=== PATIENT | female | born 1955 | race Caucasian/White ===

== ENCOUNTER 2017-10-26 18:24 | Emergency (ER) | payer MEDICAID, SELFPAY ==
[2017-10-26 18:27] VITALS: BP 141/112; PULSE 76; RESP 18; TEMP 36.7; O2SAT 99; BMI 29.2
[2017-10-26 18:32] VITALS: O2SAT 100
--- NOTE | 2017-10-26 18:50 | RAD_ITS ---
XR Foot Min 3 Views INDICATION: fell today, left great toe pain COMPARISON: None TECHNIQUE: 3 views of the left foot FINDINGS: Multiple radiopaque densities are seen overlying the forefoot predominantly the first and second toe. This could be from overlying clothing, bandaging, or extensive dirt, prescribed with physical exam. The evaluation of the osseous structures is therefore limited. There is a nondisplaced fracture through the base of the distal phalanx of the great toe. There is otherwise normal alignment. RAD/Foot min 3 Views IMPRESSION: Nondisplaced fracture through the base of the distal phalanx of the left great toe. Extensive artifacts. at 1955 Reported and signed by: Macie Dinh MD Electronically Signed: Macie Dinh MD at 19:54 EDT Tel , Service support ,
--- NOTE | 2017-10-26 18:50 | EKG12_ITS ---
Test Reason : FALL
--- NOTE | 2017-10-26 18:50 | RAD_ITS ---
XR Chest 1 View INDICATION: slipped and fell today, pain COMPARISON: None FINDINGS: Heart size and pulmonary vascularity are within normal limits. The lungs are clear without evidence of airspace consolidation or pleural effusion. The osseous structures are grossly unremarkable. RAD/Chest 1 View (Portable) IMPRESSION: No radiographic evidence of acute intrathoracic disease. at 1960 Reported and signed by: Macie Dinh MD Electronically Signed: Macie Dinh MD at 19:57 EDT Tel , Service support ,
--- NOTE | 2017-10-26 18:50 | RAD_ITS ---
XR Knee 3 Views INDICATION: left knee pain after a fall today COMPARISON: None TECHNIQUE: 3 views of the left knee FINDINGS: The osseous structures are intact and well aligned. Joint spaces are preserved. There is no evidence of significant joint effusion. RAD/Knee 3 Views IMPRESSION: Negative plain film examination of the left knee. at 1959 Reported and signed by: Macie Dinh MD Electronically Signed: Macie Dinh MD at 19:56 EDT Tel , Service support ,
--- NOTE | 2017-10-26 18:51 | RAD_ITS ---
XR Spine Lumbar 2 or 3 Views INDICATION: fell today, pain COMPARISON: None TECHNIQUE: Frontal and lateral views of the lumbar spine and cone-down lateral view of the lumbosacral junction FINDINGS: There are 5 lumbar-type [id number] vertebral bodies. There is normal lumbar lordosis. The disc space at L3-4 is effaced and marked endplate degenerative changes are noted. Severe vascular calcifications are noted. RAD/Lumbar Spine 2 or 3 Views IMPRESSION: Marked vascular calcifications. L3-4 degenerative disc disease. at 2000 Reported and signed by: Macie Dinh MD Electronically Signed: Macie Dinh MD at 19:58 EDT Tel , Service support ,
[2017-10-26 19:01] LABS: Absolute Lymphocyte Count 1.93 X10^3/ul (0.83-4.51); Absolute Neutrophil Count 5.7 X10^3/uL (2.0-7.7); Basophil# 0.02 X10^3/uL; Basophil% 0.2 % (0-1); Eosinophil# 0.05 X10^3/uL; Eosinophils% 0.6 % (0-5); Hematocrit 37.9 % (37-47); Hemoglobin 12.8 g/dl (12.0-15.0); Lymphocyte # 1.93 X10^3/ul (4.0); Lymphocyte % 23.4 % (19-41); Mean Corp Hgb Conc 33.8 g/gl (32-36); Mean Corpuscular Hgb 29.8 pg (27.0-32.0); Mean Corpuscular Volume 88.1 fL (81-99); Mean Platelet Vol. 9.9 fl (6.2-12.0); Monocyte# 0.55 X10^3/uL; Monocyte% 6.7 % (0-10); Neutrophil # 5.68 X10^3/uL (2.7-7.7); POSITIVE COUNT NO; POSITIVE DIFFERENTIAL NO; POSITIVE MORPHOLOGY NO; Platelet Count 160 K/mm3 (150-450); RBC Distribution Width CV 13.1 % (11.6-14.6); RBC Distribution Width SD 41.8 fl (35.1-43.9); White Blood Count 8.2 K/mm3 (4.4-11.0)
[2017-10-26 19:26] LABS: Anion Gap 8 (5-15); BUN 21 mg/dL (7-18); BUN/Creat Ratio 13.4 RATIO (10-20); Calcium,Total 8.6 mg/dL (8.5-10.1); Chloride 111 mmol/L (98-107); Creatinine, Serum 1.57 mg/dL (0.55-1.02); EST Glomerular Filtration Rate 35 mL/min (>60); Est Glom Filt Rate - Afr Amer 43 mL/min (>60); Estimated Creatinine Clearance 29.01 ml/min; Glucose 124 mg/dL (74-106); Potassium 4.2 mmol/L (3.5-5.1); Sodium Level 141 mmol/L (136-145)
[2017-10-26] MEDS: Naproxen 500 MG Tablet PO (19:29)
[2017-10-26 19:34] VITALS: BP 131/93; PULSE 74; RESP 17; O2SAT 100
--- NOTE | 2017-10-26 20:15 | ED.DCSUM_ITS ---
- ER Visit Summary Date of Service: 10/26/17 Chief Complaint: Fall, left leg injury, syncope History of Present Illness: The patient is a 62 F who was walking down steps when she slipped and fell onto her left hand side. She injured her buttocks, left knee and left foot. She then ambulated afterwards and she had a syncopal episode after that. She denied any chest pain or shortness of breath and and currently. Physical Examination: Vital signs are reviewed. HEENT exam unremarkable. Heart is regular rate and rhythm. Lungs clear to auscultation. Abdomen soft nontender. Back reveals lumbar tenderness. Extremity exam reveals left knee tenderness to palpation. She has left great toe tenderness as well. She has full range of motion with pain of these areas. Her GCS is 15. Her neurologic exam is normal Test Results: Her studies are unremarkable except for creatinine to 1.57. EKG is normal sinus rhythm with no ST changes. Chest x-ray, lumbar spine x-ray and knee x-ray revealed no acute findings. Left foot x-ray does reveal a nondisplaced great toe fracture Emergency Department Course and Treatment: The patient's syncope may have been due to the pain. She was able to ambulate after the fall. Her only injury is a left great toe fracture. She will be placed in a postop shoe. I will give her naproxen here and some [place] at home. She will follow-up with her PCP Treatment Plan: [] Disposition: Discharge Impression: Fall, left great toe fracture, syncope This note was generated with [employer] dictation software. It may contain incorrect words, spelling, and punctuation that were not noted in review of the chart prior to signing ED Disposition - Plan for ED Patient: Chief Complaint: Fall Referrals: Deepali Marino MD [Primary Care Provider] -
--- NOTE | 2017-10-26 20:15 | ED.DEP ---
ED Disposition - Plan for ED Patient: Disposition: Home or Assisted Living Chief Complaint: Fall Instructions: ED Mechanical Fall Prescriptions: Hydrocodone/Acetaminophen [Chandler 5-325 Tablet] 1 - 2 ea PO 4X/DAY PRN PRN 3 Days #12 tab PRN Reason: Pain Referrals: Deepali Marino MD [Primary Care Provider] -
[2017-10-26 20:43] VITALS: BP 133/78; PULSE 79; RESP 16; O2SAT 97
== END 2017-10-26 20:45 | disposition home or self-care (01) ==
PROVIDERS: Emergency Provider Emergency Medicine; Family Provider Internal Medicine; PCP Internal Medicine
DX: S92.405A Nondisplaced unspecified fracture of left great toe, initial encounter for closed fracture (principal); R55 Syncope and collapse; W01.0XXA Fall on same level from slipping, tripping and stumbling without subsequent striking against object, initial encounter; Y93.01 Activity, walking, marching and hiking; Y92.9 Unspecified place or not applicable; J45.909 Unspecified asthma, uncomplicated; I10 Essential (primary) hypertension; E03.9 Hypothyroidism, unspecified; Z79.899 Other long term (current) drug therapy
CPT/HCPCS: 36415; 71045; 72100; 73562; 73630; 80048; 84484; 85025; 93005; 99285; J7030; A4216

== ENCOUNTER → 2017-11-04 10:14 | Outpatient (CLI) | payer MEDICAID, SELFPAY ==
--- NOTE | 2017-11-04 10:00 | MRI_ITS ---
STUDY: MRI BRAIN WITH AND WITHOUT CONTRAST REASON FOR EXAM: Female, 62 years old. Pulsatile tinnitus. TECHNIQUE: Standardized multiplanar fat and water weighted pulse sequences were obtained. 8 ml of Gadavist contrast material was administered intravenously for the contrast portion of the examination. COMPARISON: None. FINDINGS: No restricted diffusion to suspect acute or subacute ischemic infarct. No focal signal abnormalities throughout the brain parenchyma. The kirk matter, white matter, ventricles and cisterns are normal. Normal size of the ventricles and extra-axial spaces for the patient's age. Normal white matter tracts of the supratentorial brain. Normal bilateral basal ganglia. Normal thalami. There is no extra-axial fluid accumulation. Normal flow voids within the major intracranial circulation suggesting patency by spin echo criteria. Normal venous enhancement. There is no enhancing intra-axial or extra-axial abnormality. Normal sella turcica, pituitary gland, infundibular stalk, optic chiasm and hypothalamus. Normal tectal plate and pineal gland. Normal midbrain, ru and medulla. Normal cerebellum. Normal basal cisterns. The thin axial cuts and coronal cuts through the internal auditory canals are normal. No abnormal contrast enhancement of either membranous labyrinth. Normal bilateral internal auditory canals. No demonstrated orbital abnormality, within the constraints of a routine brain study. Normal visualized paranasal sinuses. Normal calvarium and skull base. Normal visualized soft tissue structures. Normal visualized upper cervical spine. MRI/Brain W/WO Contrast IMPRESSION: Normal MRI of the brain and internal auditory canals with and without intravenous contrast. COMMENT: If dural AV fistula is a clinical consideration, cerebral arteriogram with bilateral internal and external carotid arteriograms will be helpful for further evaluation. Electronically Signed: Emile Gomez MD at 11:45 EDT , Service support ,
--- NOTE | 2017-11-04 10:00 | MRI_ITS ---
STUDY: MRA OF THE HEAD WITHOUT CONTRAST REASON FOR EXAM: Female, 62 years old. Left pulsatile tinnitus. TECHNIQUE: 3-D [id number] (TOF) imaging was performed with MIPs. The study was performed unenhanced. COMPARISON: None. FINDINGS: Normal bilateral petrous carotid arteries. Normal right cavernous carotid artery with a normal supraclinoid bifurcation. Normal left cavernous carotid artery with a normal supraclinoid bifurcation. Normal right A1 segment of the anterior cerebral artery. Normal left A1 segment of the anterior cerebral artery. Normal intact anterior communicating artery (ACOM). Normal bilateral A2 segments of the anterior cerebral arteries. Normal right M1 and M2 segments of the middle cerebral arteries, with a normal M1 bifurcation. Normal left M1 and M2 segments of the middle cerebral arteries, with a normal M1 bifurcation. Normal right posterior communicating artery (PCOM). Normal left posterior communicating artery (PCOM). Normal bilateral vertebral arteries. Normal basilar artery with a normal basilar bifurcation. The visualized bilateral superior cerebellar (SCA) arteries are normal. Normal bilateral P1, P2 and visualized P3 segments of the posterior cerebral arteries. There is no demonstrated aneurysm of the stebbins of [place]. There is no major vessel occlusion or hemodynamically significant stenosis. There is no demonstrated abnormality of the visualized brain. MRI/MRA Head ONLY without Contrast IMPRESSION: Normal MRA of the head Electronically Signed: Emile Gomez MD at 11:25 EDT , Service support ,
--- NOTE | 2017-11-04 10:14 | DT_ITS ---
This patient was seen during an EMR downtime November 03, 2017 - November 10, 2017. This patient may have a combination of paper and electronic documentation or all paper documentation. All documentation is viewable within the e-chart portion of [facility] for each patient visit.
== END ==
PROVIDERS: Family Provider Internal Medicine; PCP Internal Medicine; Visit Provider Otolaryngology
DX: H93.A2 Pulsatile tinnitus, left ear (principal)
CPT/HCPCS: 70544; 70553; A9585

== ENCOUNTER → 2017-11-21 09:42 | Outpatient (CLI) | payer MEDICAID, SELFPAY ==
--- NOTE | 2017-11-21 09:46 | CDU_ITS ---
Reason For Study: Pulsatile tinnitus Rt. Velocities/BP Lt. Velocities/BP Prox CCA 78.0/19.9 cm/sec. Prox CCA 89.37/20.5 cm/sec. Mid CCA 85.6/21.1 cm/sec. Mid CCA 83.3/22.9 cm/sec. Dist CCA 76.8/25.2 cm/sec. Dist CCA 83.8/21.1 cm/sec. Prox ICA 85.6/28.1 cm/sec. Prox ICA 71.5/22.9 cm/sec. Mid ICA 90.3/28.7 cm/sec. Mid ICA 74.6/22.6 cm/sec. Dist ICA 70.5/20.8 cm/sec. Dist ICA 69.0/20.5 cm/sec. Rt. ICA/CCA = 1.1. Lt. ICA/CCA = .90. Prox ECA 91.5/15.2 cm/sec. Prox ECA 89.1/16.4 cm/sec. Rt. Vert. 43.4/12.9 cm/sec. Lt. Vert. 49.7/15.5 cm/sec. Right Extracranial There is intimal thickening but no significant atherosclerotic plaque noted in the right common carotid artery. There is intimal thickening but no significant atherosclerotic plaque noted in the right internal carotid artery. There is heterogeneous, irregular atherosclerotic plaque noted in the right external carotid artery. Antegrade flow is noted in the right vertebral artery. Left Extracranial There is intimal thickening but no significant atherosclerotic plaque noted in the left common carotid artery. There is intimal thickening but no significant atherosclerotic plaque noted in the left internal carotid artery. There is intimal thickening but no significant atherosclerotic plaque noted in the left external carotid artery. Antegrade flow is noted in the left vertebral artery. There is heterogeneous, irregular atherosclerotic plaque noted in the left bulb. Procedure Carotid Duplex 13999. Exam performed in department. Interpretation Summary No significant atherosclerotic plaque or stenosis noted in the internal carotid arteries bilaterally. Flow within the vertebral arteries is antegrade bilaterally. A small amount of heterogeneous, irregular atherosclerotic plaque is noted in the left carotid bulb, which is not hemodynamically significant. Ordering Physician: Mihir Galloway Referring Physician: Mihir Galloway Performed By: Bing Fam RVT
== END ==
PROVIDERS: Family Provider Internal Medicine; PCP Internal Medicine; Visit Provider Otolaryngology
DX: H93.A9 Pulsatile tinnitus, unspecified ear (principal); E78.5 Hyperlipidemia, unspecified
CPT/HCPCS: 93880

== ENCOUNTER → 2017-12-12 13:05 | Outpatient (CLI) | payer MEDICAID, SELFPAY ==
--- NOTE | 2017-12-12 13:11 | CT_ITS ---
STUDY: CT TEMPORAL BONES WITHOUT CONTRAST - ATTN: I.A.C. S REASON FOR EXAM: Female, 62 years old. Pulsatile abnormality in the right ureter. RADIATION DOSAGE (If Supplied By Facility): CTDIvol = ( 82.28 ) mGy, DLP = ( 734.79 ) mGycm TECHNIQUE: The patient was scanned in a multi detector CT scanner. Transaxial imaging was performed without the administration of intravenous contrast material. Sagittal and coronal images were reconstructed. Individualized dose optimization techniques were used for this CT. COMPARISON: None. FINDINGS: RIGHT TEMPORAL BONE Normal right internal auditory canal. Normal visualized ossicles and tympanic cavity. Normal right cochlea and semicircular canals. Normal vestibular aqueduct. Normal right petrous carotid artery. The right jugular fossa is enlarged. It measures 1 cm in greatest dimension. Normal right mastoid air cells. Normal right petrous apex. LEFT TEMPORAL BONE Normal left internal auditory canal. Normal visualized ossicles and tympanic cavity. Normal left cochlea and semicircular canals. Normal vestibular aqueduct. Normal left petrous carotid artery. Normal right jugular fossa. Normal left mastoid air cells. Normal left petrous apex. CT/Orb Sella Post Fossa Ear w/o IMPRESSION: Enlargement of the right jugular fossa. Electronically Signed: Jean Paul Friedman MD at 15:30 EDT Tel [phone], Service support ,
== END ==
PROVIDERS: Family Provider Internal Medicine; PCP Internal Medicine; Visit Provider Otolaryngology
DX: H93.A9 Pulsatile tinnitus, unspecified ear (principal)
CPT/HCPCS: 70480

== ENCOUNTER 2024-06-14 12:28 | Emergency (ER) | payer MEDICARE, SELFPAY ==
[2024-06-14 12:29] VITALS: BP 122/79; PULSE 93; RESP 18; TEMP 36.4; O2SAT 96; BMI 26.2
[2024-06-14 13:32] VITALS: BP 130/64; PULSE 77; RESP 17; TEMP 36.8; O2SAT 97
--- NOTE | 2024-06-14 13:41 | EDS_ITS ---
HPI History of Present Illness Chief Complaint: General Illness Narrative Narrative: Chief complaint and HPI: Flulike symptoms. 69-year-old female with past medical history of hypothyroidism, HTN, biliary disease on ursodiol who presents for evaluation of flulike symptoms. Patient states for the past week she has had cough, congestion, nausea, body aches. She states over the weekend she developed nonbloody diarrhea. Diarrhea is improving. Patient states while on the toilet on Friday she got lightheaded after having diarrhea and had a syncopal episode on the toilet. She states she knew she was going to pass out as this has happened to her before. She states she hit her head. Denies any headache. Not on blood thinners. Patient states her biggest complaint is the left shoulder pain since the fall. Denies any numbness or tingling. Patient states she presented to urgent care for her symptoms today and they referred her to the emergency department. She is denying any abdominal pain or vomiting. Denies any dysuria, chest pain, shortness of breath. Review of systems: See HPI Medications: As listed on the chart Allergies: As listed on the chart PFSH: Per chart Vital signs: As listed on the chart. Reviewed. Physical exam: Gen: A&O x3, NAD Head: Normocephalic, atraumatic Eyes: No sclera icterus, conjunctiva clear, PERRL, EOMI ENT: Moist mucous membranes, + congestion Neck: Trachea midline, No JVD, Full ROM, No meningismus CV: RRR, no murmurs, no peripheral edema, left shoulder mildly tender to palpation but full range of motion no obvious dislocation or trauma Resp: Lungs CTA BL, no w/r/c, + dry cough GI: Abd soft, non-distended, non-tender, no r/r/g Musc: Full ROM, no deformity Skin: Warm, dry, no rash Neuro: Alert, oriented, grossly intact, sensation intact Psych: Cooperative, appropriate mood and affect [facility] Home Medications ?Medication ?Instructions ?Recorded ?Last Taken ?Type lisinopril 10 mg tablet 10 mg PO DAILY 01/20/16 Unknown History ursodiol 300 mg capsule 600 mg PO BID 01/20/16 Unknown History hydrocodone-acetaminophen 5-325mg 1 - 2 ea PO 4X/DAY PRN PRN Pain 3 10/26/17 Unknown Rx 5mg-325mg days #12 tabs azithromycin 250 mg tablet See Rx Instructions PO .COMPLEX #6 06/14/24 Unknown Rx (Zithromax Z-Rico) tabs benzonatate 100 mg capsule 100 mg PO TID PRN cough 5 days #15 06/14/24 Unknown Rx caps epinephrine 0.3 mg/0.3 mL 0.3 ml IM UD 06/14/24 Unknown History injection, auto-injector levothyroxine 75 mcg tablet 75 mcg PO DAILY 06/14/24 Unknown History (Synthroid) Allergy/AdvReac Type Severity Reaction Status Date / Time erythromycin base AdvReac Nausea/Vom/ Verified 06/14/24 12:32 Diarrhea sulfamethoxazole (From AdvReac NEEDS Verified 06/14/24 12:32 Bactrim) FOLLOW-UP trimethoprim (From Bactrim) AdvReac NEEDS Verified 06/14/24 12:32 FOLLOW-UP Social History Smoking Status: Never smoker EXAM Physical Exam Const Vital Signs: 06/14/24 12:28 06/14/24 12:28 06/14/24 12:29 Temperature 97.6 F L Temperature Source Oral Pulse Rate 93 Respiratory Rate 18 Respiratory Effort Normal Non-Labored Normal Non-Labored Respiratory Depth Normal Respiratory Pattern Normal Normal Blood Pressure 122/79 H Blood Pressure Mean 93 Pulse Ox 96 Oxygen Delivery Method Room Air 06/14/24 13:32 06/14/24 14:00 06/14/24 15:31 Temperature 98.2 F 98.2 F 98.2 F Temperature Source Oral Oral Pulse Rate 77 75 68 Respiratory Rate 17 14 16 Respiratory Effort Respiratory Depth Respiratory Pattern Blood Pressure 130/64 H 135/60 H 112/62 Blood Pressure Mean 86 85 78 Pulse Ox 97 96 96 Oxygen Delivery Method Room Air Room Air MDM MDM MDM Narrative Medical decision making narrative: 69-year-old female with past medical history of hypothyroidism, HTN, biliary disease on ursodiol who presents for evaluation of flulike symptoms. Differential diagnosis includes but is not limited to viral illness, pneumonia, bronchitis, COVID-19 infection, influenza, electrolyte abnormality, UTI. CT head was considered however patient's fall was on Friday without any neurological deficits. No CT head needed at this time. Will obtain x-ray of the left shoulder to assess for fracture. NS bolus, Zofran ordered for symptoms. CBC shows leukopenia and thrombocytopenia, this can be seen in infections. This is new from previous labs. No anemia. CMP shows baseline renal insufficiency. Mild AST unremarkable ALT. Patient not having any right upper quadrant abdominal pain or epigastric pain. Lipase unremarkable. UA negative for blood or nitrates. Patient does have few leuk esterase with 1+ bacteria however no WBCs. Will send for urine culture but no antibiotics at this time. Chest x-ray was interpreted and reviewed by me, ED physician. No pneumonia, effusion, cardiomegaly, pneumothorax. X-ray of the left shoulder without dislocation or fracture. This was reviewed by me. On reevaluation, patient states her nausea is improved. She has had no diarrhea. Patient was updated of all of her results. Suspect viral illness versus bronchitis. Patient's COVID, flu, RSV still pending at this time. Even if positive patient is outside the window for Tamiflu. She is not hypoxic. Patient was given the option of waiting for results versus discharging home and following up results online. She would like to discharge home. She has albuterol inhaler at home as needed for wheezing. Will send her prescription for Tessalon Perles as needed for cough but also recommended [id number] Mucinex. Will place her on a short course of azithromycin for possible bronchitis. Patient has Bactrim listed as an allergy for nausea, vomiting, diarrhea. Patient states she has had azithromycin in the past without any complications. Patient stable to discharge home. Follow-up with PCP. Return precautions explained. She confirmed understand the plan. She was educated that she needs to have repeat labs due to her leukopenia and thrombocytopenia. She confirmed understanding of the plan. Of note, after discharge patient came back positive for influenza A. Impression: 1. Bronchitis 2. Influenza A 3. Leukopenia 4. Thrombocytopenia 5. Renal insufficiency Lab Data Labs: Laboratory Results - last 24 hr 06/14/24 06/14/24 13:50 14:02 WBC 2.1 L RBC 4.41 Hgb 13.4 Hct 40.4 MCV 91.6 MCH 30.4 MCHC 33.2 RDW Std Deviation 44.2 H RDW Coeff of Joann 13.1 Plt Count 128 L MPV 9.9 Immature Gran % (Auto) 0.500 Neut % (Auto) 51.8 Lymph % (Auto) 36.9 [place] % (Auto) 10.3 H Eos % (Auto) 0.0 Baso % (Auto) 0.5 Absolute Neuts (auto) 1.1 L Absolute Lymphs (auto) 0.79 L Nucleated RBC % 0 Sodium 138 Potassium 4.0 Chloride 107 Carbon Dioxide 26.0 Anion Gap 5 BUN 17 Creatinine 1.34 H Estim Creat Clear Calc 34.57 Est GFR (MDRD) Af Amer 50 L Est GFR (MDRD) Non-Af 42 L BUN/Creatinine Ratio 12.7 Glucose 86 Calcium 8.9 Total Bilirubin 0.50 AST 73 H ALT 32 Alkaline Phosphatase 139 H Total Protein 6.9 Albumin 2.9 L Globulin 4.0 Albumin/Globulin Ratio 0.7 L Lipase 39 Urine Color Yellow Urine Clarity Sl. Cloudy Urine pH 5.0 Ur Specific [place] 1.020 Urine Protein 30 H Urine Glucose (UA) Normal Urine Ketones 15 H Urine Occult Blood Negative Urine Nitrite Negative Urine Bilirubin Negative Urine Urobilinogen 1 H Ur Leukocyte Esterase 25 H Urine RBC 0-5 SEEN Urine WBC 0-5 SEEN Ur Squamous Epith Cells 0-5 SEEN Amorphous Sediment 1+ URATE Urine Bacteria 1+ Hyaline Casts 0-5 SEEN Urine Mucus 0 SEEN Radiography Diagnostic Testing: Clinical Impression(s) from Imaging Studies Chest X-Ray 06/14/24 14:15 IMPRESSION: No acute abnormality is seen. Electronically Signed: Jean Paul Friedman MD at 14:36 EST Reading Location ID and State: [facility] / [place] , Service support , Shoulder X-Ray 06/14/24 14:15 IMPRESSION: Normal x-ray examination of the shoulder. Electronically Signed: Jean Paul Friedman MD at 14:35 EST , Discharge Plan Triage Chief Complaint: General Illness Other Complaint: Fall ED Provider: Ken Perez Dx/Rx/DC Orders Clinical Impression: Bronchitis Instructions: ED Bronchitis with Wheezing (Adult) Prescriptions: New azithromycin [Zithromax Z-Rico] 250 mg tablet See Rx Instructions .ROUTE .COMPLEX Qty: 6 0RF Rx Instructions: For 250 mg dose pack: take 500 mg today (day 1), then 250 mg for 4 days (days 2-5) benzonatate 100 mg capsule 100 mg PO TID PRN (Reason: cough) 5 Days Qty: 15 0RF No Action lisinopril 10 MG tablet 10 mg PO DAILY Patient Comments: ursodiol 300 MG capsule 600 mg PO BID Patient Comments: hydrocodone-acetaminophen 1 EACH tablet 1 - 2 ea PO 4X/DAY PRN PRN (Reason: Pain) 3 Days Qty: 12 0RF levothyroxine [Synthroid] 75 mcg tablet 75 mcg PO DAILY epinephrine 0.3 mg/0.3 mL auto-injector 0.3 ml IM UD Primary Care Provider: Deepali Marino Referrals: Deepali Marino MD [Primary Care Provider] - 3-5 Days Activity Restrictions/Additional Instructions: Use your albuterol inhaler as needed for wheezing. Follow-up with primary care physician. Your white count and platelet count was low here in the emergency department, suspect from current infection however will need to have repeat labs performed outpatient. Print Language: Citizen Of [place] Disposition Disposition: Home, Self Care Discharge Date/Time: 06/14/24 15:34
[2024-06-14 14:00] VITALS: BP 135/60; PULSE 75; RESP 14; TEMP 36.8; O2SAT 96
[2024-06-14] MEDS: 0.9% Normal Saline (1000mL) 1,000 ML 1000 ML IV (14:04)
[2024-06-14] MEDS: Ondansetron 4 MG/2 ML Vial IV (14:04)
--- NOTE | 2024-06-14 14:15 | RAD_ITS ---
STUDY: X-RAY CHEST REASON FOR EXAM: Female, 69 years old. Cough and shortness of breath. TECHNIQUE: PA and lateral views of the chest. COMPARISON: Comparison is made with prior study dated October 26, 2017. FINDINGS: EKG electrodes are seen. Stable elevation of the right hemidiaphragm. No acute abnormality is seen. There is no demonstrated pleural abnormality. Normal size heart. Normal mediastinum and brad. Normal visualized pulmonary arteries. Normal visualized aortic arch and descending thoracic aorta. Normal visualized thoracic spine. Normal visualized ribs, clavicles, and shoulders. There is no demonstrated abnormality of the visualized soft tissue structures of the upper abdomen. RAD/Chest PA and Lateral IMPRESSION: No acute abnormality is seen. Electronically Signed: Jean Paul Friedman MD at 14:36 EST ,
--- NOTE | 2024-06-14 14:15 | RAD_ITS ---
STUDY: X-RAY - LEFT SHOULDER REASON FOR EXAM: Female, 69 years old. Pain following focal injury. TECHNIQUE: 3 view(s) of the shoulder. COMPARISON: None. FINDINGS: Normal glenohumeral articulation. Normal acromioclavicular joint. Normal acromion. Normal humeral head and visualized proximal humerus. The soft tissue structures are unremarkable. Normal visualized pulmonary apex. RAD/Shoulder min 2 Views IMPRESSION: Normal x-ray examination of the shoulder. Electronically Signed: Jean Paul Friedman MD at 14:35 EST ,
[2024-06-14 14:23] LABS: Absolute Lymphocyte Count 0.79 X10^3/uL (0.83-4.51); Absolute Neutrophil Count 1.1 X10^3/uL (2.0-7.7); Basophil# 0.01 X10^3/uL; Basophil% 0.5 % (0-1); Hematocrit 40.4 % (37-47); Hemoglobin 13.4 g/dL (12.0-15.0); Lymphocyte # 0.79 X10^3/ul (0.83-4.51); Lymphocyte % 36.9 % (19-41); Mean Corp Hgb Conc 33.2 g/dL (32-36); Mean Corpuscular Hgb 30.4 pg (27.0-32.0); Mean Corpuscular Volume 91.6 fL (81-99); Mean Platelet Vol. 9.9 fl (6.2-12.0); Monocyte# 0.22 X10^3/uL; Monocyte% 10.3 % (0-10); NRBC Flagged by Analyzer 0 % (0-5); Neutrophil # 1.11 X10^3/uL (2.7-7.7); Neutrophil % 51.8 % (47-70); Platelet Count 128 K/mm3 (150-450); RBC Distribution Width CV 13.1 % (11.6-14.6); RBC Distribution Width SD 44.2 fl (35.1-43.9); Red Blood Count 4.41 M/mm3 (4.2-5.4); White Blood Count 2.1 K/mm3 (4.4-11.0)
[2024-06-14 14:26] LABS: Mucous, Urine 0 SEEN /hpf (<or=2+)
[2024-06-14 14:33] LABS: Color, Urine Yellow (Yellow); Glucose, Dipstick Normal (Normal); Ketone-Dipstick 15 mg/dl (Negative); Leukocyte Esterase-Dipstick 25 /ul (Negative); Nitrite-Dipstick Negative (Negative); Occult Blood-Urine Negative /ul (Negative); Protein-Dipstick 30 mg/dl (Negative); Urine Bilirubin Dipstick Negative (Negative); Urine Clarity Sl. Cloudy (Clear); Urine Urobilinogen 1 mg/dl (Normal)
[2024-06-14 14:42] LABS: Bacteria 1+ /hpf (None Seen); Red Blood Cells-Urine 0-5 SEEN /hpf (0-5); White Blood Cells 0-5 SEEN /hpf (0-5)
[2024-06-14 14:43] LABS: Amorphous Sediment 1+ URATE; Squamous Epithelial Cells - UA 0-5 SEEN /hpf (5-10)
[2024-06-14 14:44] LABS: Hyaline Cast 0-5 SEEN /lpf (0-5)
[2024-06-14 15:05] LABS: ALB/GLOB Ratio 0.7 RATIO (0.9-2.4); AST(SGOT) 73 U/L (15-37); Alanine Aminotransfer ALT/SGPT 32 U/L (13-56); Albumin, Serum 2.9 g/dL (3.2-5.0); Alkaline Phosphatase 139 U/L (45-117); Anion Gap 5 (5-15); BUN 17 mg/dL (7-18); BUN/Creat Ratio 12.7 RATIO (10-20); Calcium,Total 8.9 mg/dL (8.5-10.1); Chloride 107 mmol/L (98-107); Creatinine, Serum 1.34 mg/dL (0.55-1.02); EST Glomerular Filtration Rate 42 mL/min (>60); Est Glom Filt Rate - Afr Amer 50 mL/min (>60); Estimated Creatinine Clearance 34.57 ml/min; Glucose 86 mg/dL (74-106); Lipase 39 U/L (13-75); Protein, Total 6.9 g/dL (6.4-8.2); Sodium Level 138 mmol/L (136-145)
[2024-06-14 15:31] VITALS: BP 112/62; PULSE 68; RESP 16; TEMP 36.8; O2SAT 96
== END 2024-06-14 15:34 | disposition home or self-care (01) ==
PROVIDERS: Emergency Provider Surgery; PCP Internal Medicine; Visit Provider Surgery
DX: J40 Bronchitis, not specified as acute or chronic (principal); J10.1 Influenza due to other identified influenza virus with other respiratory manifestations; R19.7 Diarrhea, unspecified; N28.9 Disorder of kidney and ureter, unspecified; M25.512 Pain in left shoulder; D72.819 Decreased white blood cell count, unspecified; D69.6 Thrombocytopenia, unspecified; R55 Syncope and collapse; I10 Essential (primary) hypertension; E03.9 Hypothyroidism, unspecified; R11.2 Nausea with vomiting, unspecified; Z79.890 Hormone replacement therapy; Z79.899 Other long term (current) drug therapy
CPT/HCPCS: 71046; 73030; 80053; 81001; 83690; 85025; 87631; 96361; 96374; 99285; A4216; J2405